=== PATIENT | male | born 1940 | race Native Hawaiian/Other Pacific Islander ===

== ENCOUNTER 2017-03-27 14:55 | Observation (INO) | payer OTHER ==
[~2017-03-27] VITALS: Ht 167.6 cm; Wt 66.9 kg
[2017-03-27] VITALS (8 sets, daily range): BP systolic 92–119; BP diastolic 52–60; TEMP 98–99.3; Ht 167.6 cm; Wt 66.9 kg
[2017-03-27 15:58] LABS: POTASSIUM 3.7 mmol/L (3.6-5.2)
[2017-03-27 16:01] LABS: PLATELET COUNT 188 K/uL (142-355)
[2017-03-27] MEDS ORDERED: HYDRALAZINE25 MG PO (22:23)
[2017-03-27] MEDS ORDERED: GLIM4TAB PO (22:24)
[2017-03-27] MEDS ORDERED: LOPRESSOR100 MG PO (22:26)
[2017-03-27] MEDS ORDERED: ROSU10TA PO (22:26)
[2017-03-27] MEDS ORDERED: DIOVAN HCT320 MG/25 PO (22:27)
[2017-03-27] MEDS ORDERED: ASPIR-8181 MG OR (22:27)
[2017-03-27] MEDS ORDERED: DIAZEPAM10 M2 PO (22:30)
[2017-03-27] MEDS ORDERED: OMEPRAZOLE20 M1 OR (22:33)
[2017-03-27] MEDS ORDERED: MELOXICAM15 MG OR (22:33)
[2017-03-27] MEDS ORDERED: CYCL10TA35 PO (22:34)
[2017-03-27] MEDS ORDERED: TOPIRAMATE100 MG OR (22:35)
[2017-03-27] MEDS ORDERED: ALBUTEROL0.083 % IN (22:36)
[2017-03-28] VITALS: BP 97/53; TEMP 97.9
[2017-03-28 01:13] VITALS: BP 97/52
== END 2017-03-28 02:10 | disposition short-term general hospital (02) ==
LOC: ED 14:55 → ICU 20:00
DX: A41.89 Other specified sepsis (principal); R10.9 Unspecified abdominal pain; R51 Headache; M54.5 Low back pain; R07.89 Other chest pain; R06.02 Shortness of breath; E86.0 Dehydration; I95.89 Other hypotension; J44.1 Chronic obstructive pulmonary disease with (acute) exacerbation; E11.9 Type 2 diabetes mellitus without complications
CPT/HCPCS: 36415; 80053; 82150; 82550; 83605; 83690; 84484; 85007; 85027; 85379; 93005; 96360; 99220; 99285; G0378; J1885; J3490

== ENCOUNTER 2018-08-26 20:38 | Emergency (ER) | payer OTHER ==
[~2018-08-26] VITALS: Ht 170.2 cm; Wt 81.6 kg
[~2018-08-26 20:38] MED LIST: ALBUTEROL0.083 % IN; ASPIR-8181 MG OR; CYCL10TA35 PO; DIAZEPAM10 M2 PO; DIOVAN HCT320 MG/25 PO; GLIM4TAB PO; HYDRALAZINE25 MG PO; LOPRESSOR100 MG PO; MELOXICAM15 MG OR; OMEPRAZOLE20 M1 OR; ROSU10TA PO; TOPIRAMATE100 MG OR
[2018-08-26 21:15] LABS: PLATELET COUNT 196 K/uL (142-355)
[2018-08-26 21:22] LABS: POTASSIUM 3.6 mmol/L (3.6-5.2)
[2018-08-26 22:06] VITALS: BP 130/73; TEMP 97.9
== END 2018-08-26 22:06 | disposition home or self-care (01) ==
LOC: ED 20:38
PROVIDERS: Internal Medicine
DX: R91.8 Other nonspecific abnormal finding of lung field (principal); R07.89 Other chest pain; J44.9 Chronic obstructive pulmonary disease, unspecified; D72.828 Other elevated white blood cell count; I48.91 Unspecified atrial fibrillation
CPT/HCPCS: 36415; 80053; 82550; 84484; 85027; 93005; 96374; 99284; J3490

== ENCOUNTER 2018-12-13 21:49 | Emergency (ER) | payer OTHER ==
[~2018-12-13] VITALS: Ht 167.6 cm; Wt 70.3 kg
[2018-12-13 22:42] LABS: POTASSIUM 4.2 mmol/L (3.6-5.2)
[2018-12-13 23:00] LABS: PARTIAL THROMBOPLASTIN TIME 25.2 SECONDS (24.5-33.6)
[2018-12-13 23:01] LABS: PLATELET COUNT 179 K/uL (142-355)
[2018-12-13 23:35] VITALS: BP 158/83; TEMP 97.7
== END 2018-12-13 23:35 | disposition short-term general hospital (02) ==
LOC: ED 21:49
PROVIDERS: Student in an Organized Health Care Education/Training Program
DX: M79.601 Pain in right arm (principal); Z98.890 Other specified postprocedural states; R00.1 Bradycardia, unspecified
CPT/HCPCS: 36415; 80053; 84484; 85027; 85610; 85730; 93005; 96374; 99284; J2270

== ENCOUNTER → 2018-12-28 10:39 | Outpatient (CLI) | payer OTHER | END | disposition short-term general hospital (02) | LOC: AMB 10:39 | DX: R55 Syncope and collapse (principal); S01.81XA Laceration without foreign body of other part of head, initial encounter; S51.012A Laceration without foreign body of left elbow, initial encounter; W18.39XA Other fall on same level, initial encounter; Y92.511 Restaurant or cafe as the place of occurrence of the external cause | CPT/HCPCS: A0425; A0429 ==

== ENCOUNTER 2018-12-28 10:41 | Emergency (ER) | payer OTHER ==
[~2018-12-28] VITALS: Ht 167.6 cm; Wt 70.3 kg
[2018-12-28 10:41] VITALS: TEMP 97.9
[2018-12-28 11:37] LABS: PLATELET COUNT 331 K/uL (142-355)
[2018-12-28 11:45] LABS: POTASSIUM 4.5 mmol/L (3.6-5.2); SODIUM 133 mmol/L (136-145)
[2018-12-28 11:54] LABS: PARTIAL THROMBOPLASTIN TIME 26.5 SECONDS (24.5-33.6)
[2018-12-28 14:14] VITALS: BP 115/66
== END 2018-12-28 14:23 | disposition home or self-care (01) ==
LOC: ED 10:41
PROVIDERS: Family Medicine
PROC: 0HQ0XZZ Repair Scalp Skin, External Approach (ICD-10-PCS; principal; 2018-12-28)
DX: R55 Syncope and collapse (principal); S01.01XA Laceration without foreign body of scalp, initial encounter; R00.1 Bradycardia, unspecified; W18.39XA Other fall on same level, initial encounter; Y92.511 Restaurant or cafe as the place of occurrence of the external cause
CPT/HCPCS: 80053; 82550; 84484; 85027; 85379; 85610; 85730; 90472; 90715; 93005; 99283

== ENCOUNTER 2021-02-11 10:59 | Outpatient (CLI) | payer OTHER | END 2021-02-11 21:25 | disposition home or self-care (01) | LOC: MRI 10:59 | PROVIDERS: ATTEND Ophthalmology | DX: H47.012 Ischemic optic neuropathy, left eye (principal) | CPT/HCPCS: 36415; 82565; 84520; A9576 ==